=== PATIENT | male | born 1955 | race Caucasian/White ===

== ENCOUNTER 2020-07-29 09:35 | Emergency (ER) | payer OTHER, SELFPAY ==
[2020-07-29 09:37] VITALS: BP 157/80; PULSE 104; RESP 22; TEMP 37.6; O2SAT 96; BMI 28.8
--- NOTE | 2020-07-29 09:53 | EKG12_ITS ---
Test Reason : SOB Blood Pressure : / mmHG Vent. Rate : 094 BPM Atrial Rate : 094 BPM P-R Int : 154 ms QRS Dur : 084 ms QT Int : 356 ms P-R-T Axes : 067 010 062 degrees QTc Int : 445 ms Normal sinus rhythm Normal ECG Confirmed by LEE ANN HELLER, RASHMI ([id number]), video effects editor PAVAN CARROLL ([id number]) on 07/31/2020 12:45:27 PM Referred By: PEDRITO/PRASHANTH Confirmed By:RASHMI NANCE MD
--- NOTE | 2020-07-29 09:58 | NURSING ---
NO OLD EKGS
--- NOTE | 2020-07-29 10:05 | ED.VIS.DYS ---
HPI History of Present Illness Chief Complaint: Shortness of Breath Narrative Narrative: 65-year-old male traveling from [place] currently camping in [place] developed symptoms of fever, cough, body aches, chills, sweats. He denies change in taste or smell. He states he did not know he had a fever until he went to the urgent care and they told him his temperature is 103. Patient does not have any chest pain but does admit to some shortness of breath. He has a dry cough and is not producing sputum. He was treated with the [employer] COVID-19 vaccine in June. He denies history of DVT/PE. He states his only medical problem is hypertension. This morning he went to drink some Gatorade and states that he vomited all of this up. He complains of some mild nausea currently. [facility] Medical History (Updated 07/29/20 @ 12:17 by Crystal Chaudhry RN) High cholesterol Hypertension Home Medications aspirin [Aspirin Low Dose] 81 mg PO DAILY 07/29/20 [History Last Taken Unknown] atenolol 50 mg PO DAILY 07/29/20 [History Last Taken Unknown] atorvastatin 40 mg PO DAILY 07/29/20 [History Last Taken Unknown] levofloxacin 500 mg PO DAILY #7 tab 07/29/20 [Rx Last Taken Unknown] losartan 50 mg PO DAILY 07/29/20 [History Last Taken Unknown] Allergy/AdvReac Type Severity Reaction Status Date / Time Sulfa (Sulfonamide Allergy Hives Verified 07/29/20 09:36 Antibiotics) Surgical History (Updated 07/29/20 @ 12:17 by Crystal Chaudhry RN) S/P appendectomy Social History Smoking Status: Current every day smoker tobacco type: cigarettes ROS ROS ED Constitutional Constitutional ED: Reports chills, fever(s) and sweats Eyes Eyes: Denies blurry vision or change in vision ENT ENT ED: Denies ear pain, rhinorrhea or sore throat Cardiovascular Cardiovascular: Reports racing heartbeat; Denies chest pain or orthopnea Respiratory/Chest Respiratory/Chest: Reports cough and dyspnea; Denies orthopnea Gastrointestinal Gastrointestinal: Reports nausea and vomiting; Denies abdominal pain Genitourinary Genitourinary ED: Denies dysuria or hematuria Musculoskeletal Musculoskeletal: Reports myalgias; Denies arthralgias or neck pain Integumentary Denies abscess or rash Neurologic Neurologic: Reports headache(s); Denies paresthesias or weakness Psychiatric Psychiatric: Denies anxiety or depression EXAM Physical Exam Const Vital Signs: 07/29/20 09:37 07/29/20 11:19 07/29/20 11:46 Temperature 99.7 F H 98.9 F Temperature Source Temporal Oral Pulse Rate 104 H Respiratory Rate 22 H Blood Pressure 157/80 H Blood Pressure Mean 105 Pulse Ox 96 94 Oxygen Delivery Method Room Air Room Air 07/29/20 12:17 07/29/20 13:24 Temperature 98.9 F Temperature Source Oral Pulse Rate 77 82 Respiratory Rate 13 20 H Blood Pressure 133/77 H 133/77 H Blood Pressure Mean 95 Pulse Ox 95 95 Oxygen Delivery Method Room Air Positive well nourished General Appearance ED: NAD HEENT Reports moist mucous membranes atraumatic Eyes PERRL and EOMs intact bilaterally General Eye ED: Negative for pale conjunctiva or scleral icterus Resp normal respiratory effort and clear to auscultation bilaterally Cardio regular rhythm Rate: tachycardic GI non-tender Palpation: soft Extremity normal to inspection General Extremety ED: Negative for edema General Extremity: Negative for edema Neuro oriented x3 Sensorium / Orientation: alert Psych mental status grossly normal Thought Process: normal thought process Skin Lesions: no lesions Rashes: no rashes MDM MDM MDM Narrative Medical decision making narrative: Patient presenting with fever, tachycardia, viral symptoms. He did have his COVID-19 vaccine. Given his vital signs sepsis work-up was initiated. Lab work shows he does not have an elevated white blood cell count. He is lymphopenic. Renal function and electrolytes are unremarkable. His potassium is 3.4 but he can replace that with oral diet. Troponin is negative. LFTs are normal. Lactic acid is negative. Patient does have some occult blood in his urine but has no sign of infection here. EKG is on my interpretation 94 bpm normal sinus rhythm without signs of ischemic changes. My interpretation of the patient's chest x-ray shows mild right upper lobe infiltrate. The radiologist does agree. Patient then had a D-dimer of 0.92 and went for CTA which was negative for PE or dissection but showed right upper lobe infiltrate once again. At this point the patient's temperature is normalized. His respiratory rate has also normalized. His heart rate is 82. His blood pressure is 133/77. He feels improved. He does not want to stay in the hospital because he is currently traveling. Grandma given that his vital signs normalized. And he looks improved and I will start him on Levaquin with the first dose in the ED. He is given return precautions. Impression: 1. Pneumonia Lab Data Attestation: I reviewed the patient's lab results. Labs: Laboratory Results - last 24 hr 07/29/20 07/29/20 07/29/20 10:30 10:30 10:30 WBC 9.0 RBC 4.36 L Hgb 13.6 Hct 40.8 MCV 93.6 MCH 31.2 MCHC 33.3 RDW Std Deviation 46.2 H RDW Coeff of Ade 13.3 Plt Count 96 L MPV 11.0 Immature Gran % (Auto) 0.400 Neut % (Auto) 83.9 H Lymph % (Auto) 5.9 L Reeves % (Auto) 8.9 Eos % (Auto) 0.6 Baso % (Auto) 0.3 Absolute Neuts (auto) 7.6 Absolute Lymphs (auto) 0.53 L Nucleated RBC % 0 Differential Comment COMMENT Platelet Estimate MOD DEC PT 13.0 INR 1.0 APTT 32.9 D-Dimer Quant (PE/DVT) 0.92 H* Sodium 134 L Potassium 3.4 L Chloride 100 Carbon Dioxide 28.0 Anion Gap 6 BUN 10 Creatinine 0.94 Estim Creat Clear Calc 75.20 Est GFR (MDRD) Af Amer 104 Est GFR (MDRD) Non-Af 86 BUN/Creatinine Ratio 10.6 Glucose 140 H Lactic Acid Calcium 8.6 Total Bilirubin 0.80 AST 22 ALT 27 Alkaline Phosphatase 56 Troponin I High Sens 13.1 Total Protein 7.5 Albumin 3.1 L Globulin 4.4 H Albumin/Globulin Ratio 0.7 L Urine Color Urine Clarity Urine pH Ur Specific [place] Urine Protein Urine Glucose (UA) Urine Ketones Urine Occult Blood Urine Nitrite Urine Bilirubin Urine Urobilinogen Ur Leukocyte Esterase Urine RBC Urine WBC Ur Squamous Epith Cells Urine Bacteria Urine Mucus 07/29/20 07/29/20 10:30 11:10 WBC RBC Hgb Hct MCV MCH MCHC RDW Std Deviation RDW Coeff of Ade Plt Count MPV Immature Gran % (Auto) Neut % (Auto) Lymph % (Auto) Reeves % (Auto) Eos % (Auto) Baso % (Auto) Absolute Neuts (auto) Absolute Lymphs (auto) Nucleated RBC % Differential Comment Platelet Estimate PT INR APTT D-Dimer Quant (PE/DVT) Sodium Potassium Chloride Carbon Dioxide Anion Gap BUN Creatinine Estim Creat Clear Calc Est GFR (MDRD) Af Amer Est GFR (MDRD) Non-Af BUN/Creatinine Ratio Glucose Lactic Acid 1.0 Calcium Total Bilirubin AST ALT Alkaline Phosphatase Troponin I High Sens Total Protein Albumin Globulin Albumin/Globulin Ratio Urine Color Yellow Urine Clarity Sl. Cloudy Urine pH 6.0 Ur Specific [place] 1.015 Urine Protein 100 H Urine Glucose (UA) Normal Urine Ketones 5 H Urine Occult Blood 150 H Urine Nitrite Negative Urine Bilirubin Negative Urine Urobilinogen 1 H Ur Leukocyte Esterase Negative Urine RBC 5-10 SEEN Urine WBC 0-5 SEEN Ur Squamous Epith Cells 0-5 SEEN Urine Bacteria 1+ Urine Mucus 0 SEEN Radiography Diagnostic Testing: Radiology Impression Chest X-Ray 07/29/20 11:15 IMPRESSION: Limited infiltrate medial aspect of the right upper lobe. Electronically Signed: Kraig Frannie, at 11:49 EDT Tel , Service support , Chest CTA 07/29/20 11:20 IMPRESSION: Evidence of pneumonia involving the right upper lobe with more consolidation medial aspect along the right paratracheal region. No evidence of PE identified. Electronically Signed: Elisemarina Frannie, at 11:56 EDT Tel , Service support , Discharge Plan Triage Chief Complaint: Shortness of Breath ED Provider: Cristopher Salgado Dx/Rx/DC Orders Instructions: ED Pneumonia (Adult) Prescriptions: New levofloxacin 500 mg tablet 500 mg PO DAILY Qty: 7 RF: 0 No Action losartan 50 mg tablet 50 mg PO DAILY RF: 0 atorvastatin 40 mg tablet 40 mg PO DAILY RF: 0 aspirin [Aspirin Low Dose] 81 mg Tablet,Delayed Release (Dr/Ec) 81 mg PO DAILY RF: 0 atenolol 50 mg tablet 50 mg PO DAILY RF: 0 Primary Care Provider: Care Physician,No Primary Referrals: Care Physician,No Primary [Primary Care Provider] - Disposition Disposition: Home, Self Care Discharge Date/Time: 07/29/20 13:24
[2020-07-29] MEDS: Acetaminophen 500 MG Tablet 1000 MG PO (10:35)
[2020-07-29] MEDS: DiphenhydrAMINE 50 MG/ML Syringe 25 MG IV (10:36)
[2020-07-29] MEDS: Ketorolac 15 MG/ML Vial IV (10:36)
[2020-07-29] MEDS: Metoclopramide 10 MG/2 ML Vial IV (10:36)
[2020-07-29 10:48] LABS: Partial Thromboplast Time 32.9 Seconds (24.1-36.2)
[2020-07-29 10:52] LABS: Absolute Lymphocyte Count 0.53 X10^3/uL (0.83-4.51); Absolute Neutrophil Count 7.6 X10^3/uL (2.0-7.7); Basophil# 0.03 X10^3/uL; Basophil% 0.3 % (0-1); Eosinophil# 0.05 X10^3/uL; Eosinophils% 0.6 % (0-5); Hematocrit 40.8 % (40-54); Hemoglobin 13.6 g/dL (13.0-16.5); Lymphocyte # 0.53 X10^3/ul (0.83-4.51); Lymphocyte % 5.9 % (19-41); Mean Corp Hgb Conc 33.3 g/dL (32-36); Mean Corpuscular Hgb 31.2 pg (27.0-32.0); Mean Corpuscular Volume 93.6 fL (80-94); Monocyte% 8.9 % (0-10); NRBC Flagged by Analyzer 0 % (0-5); Neutrophil # 7.58 X10^3/uL (2.7-7.7); Neutrophil % 83.9 % (47-70); POSITIVE COUNT YES; POSITIVE DIFFERENTIAL YES; Platelet Count 96 K/mm3 (150-450); RBC Distribution Width CV 13.3 % (11.6-14.6); RBC Distribution Width SD 46.2 fl (35.1-43.9); Red Blood Count 4.36 M/mm3 (4.6-6.2)
[2020-07-29 10:55] LABS: Differential Indicated SCAN CRITERIA MET
[2020-07-29 10:57] LABS: ALB/GLOB Ratio 0.7 RATIO (0.9-2.4); AST(SGOT) 22 U/L (15-37); Alanine Aminotransfer ALT/SGPT 27 U/L (16-61); Albumin, Serum 3.1 g/dL (3.2-5.0); Alkaline Phosphatase 56 U/L (45-117); Anion Gap 6 (5-15); BUN 10 mg/dL (7-18); BUN/Creat Ratio 10.6 RATIO (10-20); Calcium,Total 8.6 mg/dL (8.5-10.1); Chloride 100 mmol/L (98-107); Creatinine, Serum 0.94 mg/dL (0.70-1.30); EST Glomerular Filtration Rate 86 mL/min (>60); Est Glom Filt Rate - Afr Amer 104 mL/min (>60); Globulin 4.4 g/dL (2.2-4.2); Glucose 140 mg/dL (74-106); Potassium 3.4 mmol/L (3.5-5.1); Protein, Total 7.5 g/dL (6.4-8.2); Sodium Level 134 mmol/L (136-145); Troponin-I HS 13.1 pg/mL (3.0-78.5)
[2020-07-29 11:00] LABS: D-Dimer Quantitative (DVT/PE) 0.92 FEU/ug/m (0.27-0.49)
--- NOTE | 2020-07-29 11:15 | RAD_ITS ---
STUDY: X-RAY CHEST REASON FOR EXAM: Male, 65 years old. cough TECHNIQUE: 1 view COMPARISON: None . FINDINGS: Heart and mediastinum are within normal limits. Calcification of the aortic knob is seen. There is limited infiltration seen in the medial aspect of the right upper lobe for which follow-up is needed. There are heavy markings centrally. The peripheral lung ruano and costophrenic angles including the apices are otherwise clear. The trachea is in the midline the visualized bony thorax is intact. RAD/Chest 1 View (Portable) IMPRESSION: Limited infiltrate medial aspect of the right upper lobe. Electronically Signed: Kraig Kathleen, at 11:49 EDT Tel , Service support ,
[2020-07-29 11:19] VITALS: O2SAT 94
[2020-07-29 11:20] LABS: Mucous, Urine 0 SEEN /hpf (<or=2+)
--- NOTE | 2020-07-29 11:20 | CT_ITS ---
STUDY: CTA CHEST REASON FOR EXAM: Male, 65 years old. dyspnea RADIATION DOSAGE (If Supplied By Facility): CTDIvol = ( 10.09 ) mGy, DLP = ( 404.18 ) mGycm TECHNIQUE: The examination was performed with the intravenous administration of IV 100mL Isovue-370. Post-processing of the angiographic images was performed, with multiplanar reformation and 3D reconstruction. Individualized dose optimization techniques were used for this CT. COMPARISON: None. FINDINGS: The cardiac silhouette is not enlarged There is evidence of pneumonia involving the right upper lobe with consolidation more in the medial aspect. Otherwise the rest of the lung ruano are clear no evidence of pulmonary filling defect in the pulmonary arteries ronnell the segmental and subsegmental branches to suggest PE. CT/CTA Chest W/WO Contrast IMPRESSION: Evidence of pneumonia involving the right upper lobe with more consolidation medial aspect along the right paratracheal region. No evidence of PE identified. Electronically Signed: Kraig Kathleen, at 11:56 EDT Tel , Service support ,
[2020-07-29 11:21] LABS: Color, Urine Yellow (Yellow); Glucose, Dipstick Normal (Normal); Ketone-Dipstick 5 mg/dl (Negative); Leukocyte Esterase-Dipstick Negative /ul (Negative); Nitrite-Dipstick Negative (Negative); Occult Blood-Urine 150 /ul (Negative); Protein-Dipstick 100 mg/dl (Negative); Specific Gravity, Urine 1.015 (1.002-1.030); Urine Bilirubin Dipstick Negative (Negative); Urine Clarity Sl. Cloudy (Clear); Urine Urobilinogen 1 mg/dl (Normal)
[2020-07-29 11:46] VITALS: TEMP 37.2
[2020-07-29 11:47] LABS: Platelet Estimate MOD DEC (ADEQ)
[2020-07-29 11:56] LABS: Bacteria 1+ /hpf (None Seen); Red Blood Cells-Urine 5-10 SEEN /hpf (0-5); Squamous Epithelial Cells - UA 0-5 SEEN /hpf (0-5); White Blood Cells 0-5 SEEN /hpf (0-5)
[2020-07-29 12:17] VITALS: BP 133/77; PULSE 77; RESP 13; TEMP 37.2; O2SAT 95
[2020-07-29] MEDS: levoFLOXacin 500 MG Tablet PO (13:18)
[2020-07-29 13:24] VITALS: BP 133/77; PULSE 82; RESP 20; O2SAT 95
--- NOTE | 2020-07-29 13:38 | CM.ED ---
SW Note Referral Source: Case Find Referral Reason: No PCP SW reviewed ER board and noted patient had no PCP. SW noted that patient is from [place] per patient information. SW went to room to clarify but patient out for testing. SW responded to emergency situation and then reviewed chart and patient had been discharged home. No further SW services at this time. Plan: Patient discharged home Nya GOMEZ
== END 2020-07-29 13:24 | disposition home or self-care (01) ==
PROVIDERS: Emergency Provider Student in an Organized Health Care Education/Training Program
DX: J18.9 Pneumonia, unspecified organism (principal); Z20.822 Contact with and (suspected) exposure to COVID-19; R31.9 Hematuria, unspecified; R11.10 Vomiting, unspecified; I10 Essential (primary) hypertension; E78.00 Pure hypercholesterolemia, unspecified; F17.210 Nicotine dependence, cigarettes, uncomplicated; Z79.82 Long term (current) use of aspirin; Z79.899 Other long term (current) drug therapy
CPT/HCPCS: 71045; 71275; 80053; 81001; 83605; 84484; 85025; 85379; 85610; 85730; 87040; 87086; 87088; 87426; 93005; 96374; 96375; 99285; Q9967; A4216

== ENCOUNTER → 2023-08-24 | Outpatient (CLI) | payer OTHER, SELFPAY ==
--- NOTE | 2023-08-24 08:55 | RAD_ITS ---
STUDY: X-RAY CHEST REASON FOR EXAM: Male, 68 years old. NODULE ON LUNGS TECHNIQUE: PA and lateral views of the chest. COMPARISON: 07/29/2020 FINDINGS: The lungs are clear and expanded. There is no demonstrated pleural abnormality. Normal size heart. Normal mediastinum and genevieve. Normal visualized pulmonary arteries. Normal visualized aortic arch and descending thoracic aorta. Normal visualized thoracic spine. Normal visualized ribs, clavicles, and shoulders. There is no demonstrated abnormality of the visualized soft tissue structures of the upper abdomen. RAD/Chest PA and Lateral IMPRESSION: Normal x-ray examination of the chest. Electronically Signed: Erick Gibbons MD at 17:08 EDT ,
[2023-08-24 09:48] LABS: Free T3 2.7 pg/mL (2.18-3.98); T4 Free Direct 1.04 ng/dL (0.76-1.46); Thyroid Stim Hormone (TSH) 2.11 uIU/mL (0.358-3.74)
== END | disposition home or self-care (01) ==
PROVIDERS: PCP Family Medicine; Referring Provider Chiropractor; Visit Provider Chiropractor
DX: E04.9 Nontoxic goiter, unspecified (principal); J44.9 Chronic obstructive pulmonary disease, unspecified; R91.8 Other nonspecific abnormal finding of lung field
CPT/HCPCS: 36415; 71046; 84439; 84443; 84481; 94060; 94726; 94729

== ENCOUNTER 2023-11-04 08:35 | Emergency (ER) | payer OTHER, SELFPAY ==
[2023-11-04 08:36] VITALS: BP 158/78; PULSE 60; RESP 16; TEMP 36.6; O2SAT 96; BMI 30.2
--- NOTE | 2023-11-04 08:47 | RAD_ITS ---
EXAM: XR RIGHT HAND COMPLETE, 3 OR MORE VIEWS CLINICAL INDICATION: injury TECHNIQUE: Frontal, lateral and oblique views of the right hand. COMPARISON: No relevant prior studies available. FINDINGS: BONES/JOINTS: No acute abnormality. SOFT TISSUES: Normal. No soft tissue swelling or gas. No radiopaque foreign body. RAD/Hand Min 3 Views IMPRESSION: Intact right hand. Electronically Signed: Yrn Marquis MD at 9:44 EDT ,
--- NOTE | 2023-11-04 08:47 | RAD_ITS ---
EXAM: XR RIGHT SHOULDER COMPLETE, 2 OR MORE VIEWS CLINICAL INDICATION: injury TECHNIQUE: Two or more views of the right shoulder. COMPARISON: No relevant prior studies available. FINDINGS: BONES/JOINTS: No acute fracture or subluxation. Glenohumeral joint space appears narrowed. SOFT TISSUES: Normal. No soft tissue swelling or gas. No radiopaque foreign body. RAD/Shoulder min 2 Views IMPRESSION: No acute bone or joint abnormality. Electronically Signed: Yrn Marquis MD at 9:42 EDT ,
--- NOTE | 2023-11-04 08:50 | EDS_ITS ---
HPI History of Present Illness Chief Complaint: Upper Extremity Injury Informant: patient and spouse/S.O. Narrative Narrative: 68-year-old male states that he fell down 2 stairs last night around 2000 hours. States he impacted the right shoulder and hurt his hand as he notes it swollen. He notes multiple abrasions abdomen left arm right shoulder and. He notes he and his head did not have a loss of consciousness. He notes some soreness from where his glasses were wrapped on the right temporal region. No nausea no vomiting. No headache. He notes limited range of motion of the right shoulder. [facility] Medical History High cholesterol Hypertension Home Medications ?Medication ?Instructions ?Recorded ?Last Taken ?Type aspirin 81 mg tablet,delayed 81 mg PO DAILY 07/29/20 Unknown History release (Jolly Low Dose Aspirin) atenolol 50 mg tablet 50 mg PO DAILY 07/29/20 Unknown History atorvastatin 40 mg tablet 40 mg PO DAILY 07/29/20 Unknown History levofloxacin 500 mg tablet 500 mg PO DAILY #7 tabs 07/29/20 Unknown Rx losartan 50 mg tablet 50 mg PO DAILY 07/29/20 Unknown History oxycodone-acetaminophen 5 mg-325 1 tab PO Q6H PRN PRN Pain 3 days 11/04/23 Unknown Rx mg tablet #12 TABLETS Allergy/AdvReac Type Severity Reaction Status Date / Time Sulfa (Sulfonamide Allergy Hives Verified 11/04/23 08:36 Antibiotics) Surgical History S/P appendectomy Social History Smoking Status: Current every day smoker tobacco type: cigarettes ROS ROS ED Constitutional Constitutional ED: Denies chills, fever(s) or weight loss Eyes Eyes: Denies change in vision or diplopia ENT ENT ED: Denies ear pain, rhinorrhea or sore throat Cardiovascular Cardiovascular: Denies chest pain, orthopnea, palpitations or racing heartbeat Respiratory/Chest Respiratory/Chest: Denies cough, dyspnea or orthopnea Gastrointestinal Gastrointestinal: Denies abdominal pain, diarrhea, nausea or vomiting Genitourinary Genitourinary ED: Denies dysuria, hematuria or urinary frequency Musculoskeletal Musculoskeletal: Reports other Details: Right shoulder pain right hand pain/swelling ; Denies arthralgias or myalgias Integumentary Reports Abrasions; Denies abscess or rash Neurologic Neurologic: Denies headache(s), paresthesias or weakness Psychiatric Psychiatric: Denies anxiety, depression, suicidal ideation or suicidal thoughts Endocrine Endocrinology: Denies polydipsia, polyphagia or polyuria Allergic/Immunologic Allergic/Immunologic ED: Denies mouth swelling, tongue swelling or urticaria EXAM Physical Exam Const Vital Signs: 11/04/23 08:36 Temperature 97.9 F Temperature Source Oral Pulse Rate 60 Respiratory Rate 16 Blood Pressure 158/78 H Blood Pressure Mean 104 Pulse Ox 96 Oxygen Delivery Method Room Air Positive well nourished and well developed General Appearance ED: well developed and NAD HEENT Reports normocephalic, head/scalp atraumatic and moist mucous membranes atraumatic Eyes PERRL and EOMs intact bilaterally Neck no lymphadenopathy, supple and no JVD Resp normal respiratory effort and clear to auscultation bilaterally Cardio regular rate, regular rhythm and no murmurs GI normal to inspection, nondistended, normoactive bowel sounds and non-tender Palpation: soft Back/Spine no CVA tenderness and normal ROM Extremity Extremity Narrative: Tender to palpation over the proximal right shoulder. There is no clavicular tenderness. No scapular tenderness. There is mild right hand swelling no deformity. No wrist pain with movement or palpation. There are multiple a brasions across the left forearm right hand and upper arm anterior abdominal wall General Extremety ED: Negative for edema General Extremity: Negative for edema Neuro oriented x3 and CN's II-XII intact bilaterally Sensorium / Orientation: alert Motor Exam: strength 5/5 throughout Psych mental status grossly normal Mood & Affect: Negative for depressed or tearful Skin no rashes or lesions noted Trauma: abrasion MDM MDM MDM Narrative Medical decision making narrative: Differential diagnosis includes but not limited to fracture ligamentous injury tendon injury contusion abrasions intra-abdominal/solid organ injury intracranial hemorrhage hematoma concussion From the head standpoint the patient has no headache nausea vomiting loss of consciousness. He is tender only where his glasses hit him on the yazidism there is no palpable bony depression I do not feel strongly that a CT of the brain is indicated. I depend interpretation of the plain films of the right hand is no acute fracture. My independent interpretation of the plain films of the right shoulder is an acromial fracture. A CT of the shoulder was obtained which demonstrates a comminuted nondisplaced acromial fracture. He will be placed in a sling. Case was discussed with Dr. Yarbrough from orthopedics. I will write for pain medication. We talked about frozen shoulder. We talked about limited range of motion until cleared. Patient is comfortable with the plan I will write for some Percocet at home. History & Record Review Discussion w/independent historian: Patient and Significant other Management Discussion w/another healthcare provider: Wrinkle Chaser (Dr. Yarbrough) Discharge Plan Triage Chief Complaint: Upper Extremity Injury ED Provider: Nilesh Mata Dx/Rx/DC Orders Clinical Impression: Acromial fracture, Fall, Abrasion, Contusion of hand Instructions: ED Abrasion, ED Fracture, Shoulder Prescriptions: New oxycodone-acetaminophen 5-325 mg tablet 1 tab PO Q6H PRN PRN (Reason: Pain) 3 Days Qty: 12 0RF No Action losartan 50 mg tablet 50 mg PO DAILY atorvastatin 40 mg tablet 40 mg PO DAILY aspirin [Jolly Low Dose Aspirin] 81 mg Tablet,Delayed Release (Dr/Ec) 81 mg PO DAILY atenolol 50 mg tablet 50 mg PO DAILY levofloxacin 500 mg tablet 500 mg PO DAILY Qty: 7 0RF Primary Care Provider: Vlad Trimble Referrals: Vlad Trimble DO [Primary Care Provider] - Chemo Yarbrough DO [Med Staff - Active Staff] - As soon as possible (for orthopedics) Print Language: Kinyarwanda Disposition Disposition: Home, Self Care
[2023-11-04] MEDS: oxyCODONE 5 MG Tablet PO (08:55)
--- NOTE | 2023-11-04 10:04 | CT_ITS ---
EXAM: CT RIGHT UPPER EXTREMITY WITHOUT INTRAVENOUS CONTRAST CLINICAL INDICATION: acromion fracture TECHNIQUE: Helically acquired images were obtained of the right upper extremity without intravenous contrast. 2-D reformats were performed by the technologist. This CT exam was performed using one or more of the following dose reduction techniques: automated exposure control, adjustment of the mA and/or kV according to patient size, and/or use of iterative reconstruction technique. COMPARISON: Right shoulder radiographs 11/04/2023 FINDINGS: BONES/JOINTS: Comminuted nondisplaced fracture of the acromion process of the right scapula. Bony structures of the shoulder are otherwise intact. No subluxation deformity. SOFT TISSUES: Mild soft tissue contusion adjacent to the fracture. Muscle compartments are normal. No soft tissue swelling or gas. No radiopaque foreign body. LUNGS AND PLEURAL SPACES: Centrilobular pulmonary emphysema noted. CT/Extremity Upper without Contra IMPRESSION: 1. Acute comminuted nondisplaced fracture of the acromion process. 2. Pulmonary emphysema. The pulmonary emphysema is an independent risk factor for lung cancer. Recommend follow-up low-dose CT lung cancer screening. Electronically Signed: Yrn Marquis MD at 10:49 EDT ,
[2023-11-04 11:31] VITALS: BP 145/73; PULSE 82; RESP 14; TEMP 36.6; O2SAT 99
== END 2023-11-04 11:33 | disposition home or self-care (01) ==
PROVIDERS: Emergency Provider Emergency Medicine; PCP Family Medicine; Visit Provider Emergency Medicine
DX: S42.124A Nondisplaced fracture of acromial process, right shoulder, initial encounter for closed fracture (principal); S60.221A Contusion of right hand, initial encounter; S40.811A Abrasion of right upper arm, initial encounter; S50.812A Abrasion of left forearm, initial encounter; S30.811A Abrasion of abdominal wall, initial encounter; W10.9XXA Fall (on) (from) unspecified stairs and steps, initial encounter; E78.00 Pure hypercholesterolemia, unspecified; I10 Essential (primary) hypertension; F17.210 Nicotine dependence, cigarettes, uncomplicated
CPT/HCPCS: 73030; 73130; 73200; 99283